=== PATIENT | male | born 1975 | race Caucasian/White ===

== ENCOUNTER 2019-10-14 10:54 | Emergency (ER) | payer OTHER ==
[~2019-10-14] VITALS: Ht 188 cm; Wt 115.7 kg
[2019-10-14] MEDS ORDERED: TYLENOL 1 GM (11:02)
[2019-10-14 11:58] LABS: BASO # 0.1 10^3/uL (0.0-0.2); BASO % 0.6 % (0.0-1.0); EOS # 0.1 10^3/uL (0.0-0.5); EOS % 1.6 % (0.0-3.0); HEMATOCRIT 51.1 % (42.0-52.0); HEMOGLOBIN 16.8 g/dl (13.5-17.5); LYMPH # 1.9 10^3/uL (1.5-5.0); LYMPH % 24.9 % (24.0-44.0); MEAN CORPUSCULAR HEMOGLOBIN 31.3 pg (27.0-33.0); MEAN CORPUSCULAR HGB CONC 32.9 g/dl (32.0-36.5); MEAN CORPUSCULAR VOLUME 95.3 fl (80.0-96.0); MONO # 0.7 10^3/uL (0.0-0.8); MONO % 8.4 % (0.0-5.0); NEUTROPHILS # 4.9 10^3/uL (1.5-8.5); PLATELET COUNT, AUTOMATED 227 10^3/uL (150-450); RED BLOOD COUNT 5.36 10^6/uL (4.30-6.10); WHITE BLOOD COUNT 7.7 10^3/uL (4.0-10.0)
[2019-10-14 12:17] LABS: BLOOD UREA NITROGEN 9 MG/DL (7-18); C REACTIVE PROTEIN QUANTITATIV 0.98 MG/DL (0.00-0.30); CALCIUM LEVEL 9.1 MG/DL (8.5-10.1); CARBON DIOXIDE LEVEL 30 MEQ/L (21-32); CHLORIDE LEVEL 106 MEQ/L (98-107); CREATININE FOR GFR 1.02 MG/DL (0.70-1.30); GLOMERULAR FILTRATION RATE > 60.0 (>60); GLUCOSE, FASTING 94 MG/DL (70-100); SODIUM LEVEL 139 MEQ/L (136-145)
[2019-10-14 12:43] LABS: ERYTHROCYTE SEDIMENTATION RATE 3 mm/hr (0-15)
[2019-10-14] MEDS ORDERED: BACTRIM 160MG/800MG DS TAB PO ONE (13:30)
[2019-10-14] MEDS ORDERED: BACT800T5 PO (13:31)
[2019-10-14] MEDS ORDERED: IBUP-1022 PO (13:31)
[2019-10-14 13:38] VITALS: BP 135/90
== END 2019-10-14 13:40 | disposition home or self-care (01) ==
LOC: M ED 10:54
DX: L03.115 Cellulitis of right lower limb (principal); S80.11XA Contusion of right lower leg, initial encounter; W22.8XXA Striking against or struck by other objects, initial encounter; Y92.89 Other specified places as the place of occurrence of the external cause; Y99.0 Civilian activity done for income or pay

== ENCOUNTER 2021-06-27 12:10 | Emergency (ER) | payer OTHER ==
[~2021-06-27] VITALS: Ht 188 cm; Wt 122.1 kg
[~2021-06-27 12:10] MED LIST: BACT800T5 PO; IBUP-1022 PO; TYLENOL 1 GM
--- OUTSIDE RECORDS SUMMARY | 2021-06-27 12:16 | CCD ---
Author Author [facility] Organization [facility] Address Unknown Phone Unavailable Support Name Relationship Address Phone ARMY Next Of Kin [address] [place] [address] Unavailable JOSE QURESHI Next Of Kin [address] [place] [address] GARRY MONTESINOS Next Of Kin [address], [place] [address] Re-disclosure Warning The records that you are about to access may contain information from federally-assisted alcohol or drug abuse programs. If such information is present, then the following federally mandated warning applies: This information has been disclosed to you from records protected by federal confidentiality rules (42 CFR part 2). The federal rules prohibit you from making any further disclosure of this information unless further disclosure is expressly permitted by the written consent of the person to whom it pertains or as otherwise permitted by 42 CFR part 2. A general authorization for the release of medical or other information is NOT sufficient for this purpose. The Federal rules restrict any use of the information to criminally investigate or prosecute any alcohol or drug abuse patient.The records that you are about to access may contain highly sensitive health information, the redisclosure of which is protected by Article 27-F of the [facility] Public Health law. If you continue you may have access to information: Regarding HIV / AIDS; Provided by facilities licensed or operated by the [facility] Office of Mental Health; or Provided by the [facility] Office for People With Developmental Disabilities. If such information is present, then the following [facility] mandated warning applies: This information has been disclosed to you from confidential records which are protected by state law. State law prohibits you from making any further disclosure of this information without the specific written consent of the person to whom it pertains, or as otherwise permitted by law. Any unauthorized further disclosure in violation of state law may result in a fine or senior care sentence or both. A general authorization for the release of medical or other information is NOT sufficient authorization for further disc losure. Immunizations Vaccine Date Status Description Data Source(s) COVID-19 VACCINE Pfizer 11/16/2020 12:00:00 AM EST completed [facility] Vaccine Series Complete: NOThis Data was Submitted to [facility] Via [employer]. Medications No Information Insurance Providers Payer name Policy type / Coverage type Policy ID Covered libertarian ID Covered libertarian's relationship to dsouza Policy Dsouza Plan Information [facility] ACTIVE DUTY [id number] SP [id number] [facility] HUMANA - O/P [id number] 18 [id number] Problems, Conditions, and Diagnoses No Information Surgeries/Procedures No Information Results No Information Social History No Information
[2021-06-27] MEDS ORDERED: BUPR100T3 PO (13:53)
[2021-06-27] MEDS ORDERED: OMEP10CASR PO (13:53)
[2021-06-27] MEDS ORDERED: AMIT-253 PO (13:53)
--- OUTSIDE RECORDS SUMMARY | 2021-06-27 14:28 | CCD ---
Author Author [facility] Organization [facility] Address Unknown Phone Unavailable Support Name Relationship Address Phone AR[employer] Next Of Kin [address] [place] [address] Unavailable JOSE QURESHI Next Of Kin [address] [place] [address] GARRY MONTESINOS Next Of Kin [address], [place] [address] Re-disclosure Warning The records that you are [...] is protected by Article 27-F of the [facility] Public Health law. If you continue you may have access to information: Regarding HIV / AIDS; Provided by facilities licensed or operated by the [facility] Office of Mental Health; or Provided by the [facility] Office for People With Developmental Disabilities. If such information is present, then the following [facility] mandated warning applies: This information has been [...] law may result in a fine or assisted sentence or both. A general authorization for the release of medical or other information is NOT sufficient authorization for further disc losure. Immunizations Vaccine Date Status Description Data Source(s) COVID-19 VACCINE Pfizer 11/16/2020 12:00:00 AM EST completed [facility] Vaccine Series Complete: NOThis Data was Submitted to [facility] Via [employer]. Medications No Information Insurance Providers Payer name Policy type / Coverage type Policy ID Covered republican ID Covered republican's relationship to dsouza Policy Dsouza Plan Information [facility] ACTIVE DUTY [id number] SP [id number] [facility] HUMANA - O/P [id number] 18 [id number] Problems, Conditions, and Diagnoses No Information Surgeries/Procedures No Information Results No Information Social History No Information
[2021-06-27] MEDS ORDERED: KETOROLAC 60MG 2ML VIAL IM ONE (15:30)
[2021-06-27] MEDS ORDERED: LIDOCAINE 5% (LIDODERM) PATCH TD ONE (15:30)
[2021-06-27] MEDS ORDERED: diazePAM 10 MG TAB PO ONE (15:30)
[2021-06-27] MEDS ORDERED: diazePAM 5MG TABLET PO ONE (15:45)
--- NOTE | 2021-06-27 16:03 | REPVR ---
PROCEDURE INFORMATION: Exam: CT Lumbar Spine Without Contrast Exam date and time: 06/27/2021 3:38 PM Age: 45 years old Clinical indication: Low back pain; Additional info: R lbp, severe hip pain, decr. Sensation rle TECHNIQUE: Imaging protocol: Computed tomography images of the lumbar spine without contrast. Radiation optimization: All CT scans at this facility use at least one of these dose optimization techniques: automated exposure control; mA and/or kV adjustment per patient size (includes targeted exams where dose is matched to clinical indication); or iterative reconstruction. COMPARISON: No relevant prior studies available. FINDINGS: Vertebrae: Lumbar lordosis is preserved. Vertebral body heights are maintained. Multilevel facet arthropathy. No acute lumbar spine fracture. No measurable spondylolisthesis. Discs/Spinal canal/Neural foramina: Degenerative disc height loss at L5-S1. Posterior disc osteophyte complexes from L4 through S1 causing areas of mild to moderate stenosis. Soft tissues: Unremarkable. IMPRESSION: Spondylotic changes of the lumbar spine, as detailed above. Given provided history of low back pain and decreased in [place] the right lower extremity, recommend further evaluation with MRI. Electronically signed by: Sy Knutson On 06/27/2021 16:03:23 PM
[2021-06-27 20:22] LABS: BASO # 0.1 10^3/uL (0.0-0.2); BASO % 0.9 % (0.0-1.0); EOS # 0.2 10^3/uL (0.0-0.5); EOS % 3.3 % (0.0-3.0); HEMATOCRIT 43.8 % (42.0-52.0); LYMPH # 2.3 10^3/uL (1.5-5.0); LYMPH % 39.9 % (24.0-44.0); MEAN CORPUSCULAR HEMOGLOBIN 32.4 pg (27.0-33.0); MEAN CORPUSCULAR HGB CONC 34.2 g/dl (32.0-36.5); MEAN CORPUSCULAR VOLUME 94.6 fl (80.0-96.0); MONO # 0.5 10^3/uL (0.0-0.8); MONO % 8.8 % (2.0-8.0); NEUTROPHILS # 2.7 10^3/uL (1.5-8.5); NEUTROPHILS % 46.9 % (36.0-66.0); PLATELET COUNT, AUTOMATED 231 10^3/uL (150-450); RED BLOOD COUNT 4.63 10^6/uL (4.30-6.10); WHITE BLOOD COUNT 5.7 10^3/uL (4.0-10.0)
[2021-06-27 20:44] LABS: BLOOD UREA NITROGEN 9 MG/DL (7-18); C REACTIVE PROTEIN QUANTITATIV 0.48 MG/DL (0.00-0.30); CARBON DIOXIDE LEVEL 29 MEQ/L (21-32); CHLORIDE LEVEL 108 MEQ/L (98-107); CPK CREATINE PHOSPHOKINASE 360 U/L (39-308); CREATININE FOR GFR 1.03 MG/DL (0.70-1.30); GLOMERULAR FILTRATION RATE > 60.0 (>60); GLUCOSE, FASTING 88 MG/DL (70-100); POTASSIUM SERUM 3.9 MEQ/L (3.5-5.1); SODIUM LEVEL 140 MEQ/L (136-145)
[2021-06-27 20:56] LABS: ERYTHROCYTE SEDIMENTATION RATE 6 mm/hr (0-15)
--- NOTE | 2021-06-27 20:56 | REPVR ---
PROCEDURE INFORMATION: Exam: MR Lumbar Spine Without Contrast Exam date and time: 06/27/2021 7:24 PM Age: 45 years old Clinical indication: Low back pain; Additional info: Recommended per CT, decr sensation rle, lbp TECHNIQUE: Imaging protocol: Multiplanar magnetic resonance images of the lumbar spine without intravenous contrast. COMPARISON: CT Spine, lumbar w/o contrast 06/27/2021 3:34 PM FINDINGS: Vertebral body heights are maintained. Modic type 1 edematous degenerative endplate change at L5-S1. No cord compression. No abnormal cord signal. Conus medullaris terminates at the L1 level. Paravertebral soft tissues are unremarkable. L1-L2: No significant canal or foraminal narrowing. L2-L3: No significant canal or foraminal narrowing. L3-L4: Broad-based disc bulge causes mild canal narrowing with slight effacement of the right lateral recess. Mild bilateral foraminal narrowing. L4-L5: Large inferiorly oriented right paracentral disc extrusion effacing the right lateral recess and compressing the traversing right L5 nerve root. Mild to moderate overall canal narrowing. Moderate bilateral foraminal narrowing. L5-S1: Facet hypertrophy causes mild bilateral foraminal narrowing. No significant canal narrowing. IMPRESSION: 1. Large inferiorly oriented right paracentral disc extrusion at L4-L5 compressing the traversing right L5 nerve root. Recommend surgical consultation. 2. Other spondylotic changes of the lumbar spine, as detailed above. Electronically signed by: Sy Knutson On 06/27/2021 20:56:15 PM
--- NOTE | 2021-06-27 20:58 | REPVR ---
PROCEDURE INFORMATION: Exam: XR Right Hip Exam date and time: 06/27/2021 8:01 PM Age: 45 years old Clinical indication: R hip pain TECHNIQUE: Imaging protocol: XR Right hip. Views: 2 or 3 views hip with pelvis when performed. COMPARISON: CT Spine, lumbar w/o contrast 06/27/2021 3:34 PM FINDINGS: Bones/joints: No acute fracture or dislocation. Joint spaces are unremarkable. Soft tissues: Unremarkable. IMPRESSION: No acute findings. Electronically signed by: Sy Knutson On 06/27/2021 20:58:04 PM
[2021-06-27] MEDS ORDERED: **NOTE PATIENT COMMENT** MISC XX SCH (21:00)
[2021-06-27] MEDS ORDERED: IBUP80TA PO (21:49)
[2021-06-27 21:51] VITALS: BP 140/73
[2021-06-27] MEDS ORDERED: NORCO 5/325MG TABLET (BULK FOR ED) PO ONE (21:55)
--- NOTE | 2021-06-30 08:04 | ED PDOC ---
Post-Departure Follow-Up radiology repor tfaxed to [facility] Janet Andrews MD Jun 30, 2021 08:04
== END 2021-06-27 22:02 | disposition home or self-care (01) ==
LOC: M ED 12:10
DX: M51.27 Other intervertebral disc displacement, lumbosacral region (principal); M54.17 Radiculopathy, lumbosacral region; Z79.899 Other long term (current) drug therapy; F17.210 Nicotine dependence, cigarettes, uncomplicated
CPT/HCPCS: 36415; 72131; 72148; 73502; 80048; 82550; 83605; 85025; 85652; 86140; 96372; 99283; J1885

== ENCOUNTER 2021-07-03 07:59 | Emergency (ER) | payer OTHER ==
[~2021-07-03] VITALS: Ht 188 cm; Wt 120.5 kg
[~2021-07-03 07:59] MED LIST changes: +AMIT-253 PO; +BUPR100T3 PO; +IBUP80TA PO; +OMEP10CASR PO
--- OUTSIDE RECORDS SUMMARY | 2021-07-03 08:05 | CCD ---
Author Author [facility] Organization [facility] Address Unknown Phone Unavailable Support Name Relationship Address Phone AR[employer] Next Of Kin [address] [place] [address] Unavailable JOSE QURESHI Next Of Kin [address] [place] [address] GARRY MONTESINOS Next Of Kin [address], [place] [address] Re-disclosure Warning The records that you are [...] is protected by Article 27-F of the [facility] Public Health law. If you continue you may have access to information: Regarding HIV / AIDS; Provided by facilities licensed or operated by the [facility] Office of Mental Health; or Provided by the [facility] Office for People With Developmental Disabilities. If such information is present, then the following [facility] mandated warning applies: This information has [...] law may result in a fine or fdc sentence or both. A general authorization for the release of medical or other information is NOT sufficient authorization for further disc losure. Immunizations Vaccine Date Status Description Data Source(s) COVID-19 VACCINE Pfizer 11/16/2020 12:00:00 AM EST completed [facility] Vaccine Series Complete: NOThis Data was Submitted to [facility] Via [employer]. Medications Medication Brand Name Start Date Product Form Dose Route Admi nistrative Instructions Pharmacy Instructions Status Indications Reaction Description Data Source(s) 800 mg 06/28/2021 12:00:00 AM EDT tablet 30 TAKE 1 TABLET BY MOUTH EVERY 6 HOURS NEEDED FOR PAIN TAKE 1 TABLET BY MOUTH EVERY 6 HOURS NEEDED FOR PAIN SOLD: 06/28/2021 Vitor Michaels s Insurance Providers Payer name Policy type / Coverage type Policy ID Covered democrat ID Covered democrat's relationship to dsouza Policy Dsouza Plan Information [facility] ACTIVE D[employer]Y [id number] SP [id number] [facility] HUMANA - O/P [id number] 18 [id number] Problems, Conditions, and Diagnoses No Information Surgeries/Procedures No Information Results No Information Social History No Information
[2021-07-03 08:52] VITALS: BP 135/90
--- OUTSIDE RECORDS SUMMARY | 2021-07-03 08:55 | CCD ---
Author Author [facility] Organization [facility] Address Unknown Phone Unavailable Support Name Relationship Address Phone ARMY Next Of Kin [address] [place] [address] Unavailable JOSE QURESHI Next Of Kin [address] [place] [address] GARRY MONTESINOS Next Of Kin [address], [place] [address] Re-disclosure Warning The records that you are [...] is protected by Article 27-F of the [facility] Public Health law. If you continue you may have access to information: Regarding HIV / AIDS; Provided by facilities licensed or operated by the [facility] Office of Mental Health; or Provided by the [facility] Office for People With Developmental Disabilities. If such information is present, then the following [facility] mandated warning applies: This information has [...] law may result in a fine or long-term sentence or both. A general authorization for the release of medical or other information is NOT sufficient authorization for further disc losure. Immunizations Vaccine Date Status Description Data Source(s) COVID-19 VACCINE Pfizer 11/16/2020 12:00:00 AM EST completed [facility] Vaccine Series Complete: NOThis Data was Submitted to [facility] Via [employer]. Medications Medication Brand Name Start Date Product [...] type / Coverage type Policy ID Covered alliance party ID Covered alliance party's relationship to dsouza Policy Dsouza Plan Information [facility] ACTIVE [employer] [id number] SP [id number] [facility] HUMANA - O/P [id number] 18 [id number] Problems, Conditions, and Diagnoses No Information Surgeries/Procedures No Information Results No Information Social History No Information
== END 2021-07-03 08:56 | disposition home or self-care (01) ==
LOC: M ED 07:59
DX: M51.26 Other intervertebral disc displacement, lumbar region (principal); M54.16 Radiculopathy, lumbar region; K21.9 Gastro-esophageal reflux disease without esophagitis; G89.29 Other chronic pain; M25.561 Pain in right knee; Z79.899 Other long term (current) drug therapy; F17.210 Nicotine dependence, cigarettes, uncomplicated